=== PATIENT | female | born 1980 | race Caucasian/White ===

== ENCOUNTER 2017-08-21 11:42 | Emergency (ER) | payer SELFPAY ==
[~2017-08-21] VITALS: Ht 152.4 cm; Wt 52.2 kg
[~2017-08-21 11:42] MED LIST: ALPR0.5T PO; DEXT15CA18 PO; HYDR-2758 PO; MIRT45TA PO; OMEP40CA5 PO
[2017-08-21 12:05] VITALS: BP 117/64
[2017-08-21] MEDS ORDERED: AMOX500C PO (12:24)
[2017-08-21] MEDS ORDERED: TRAM-48 PO (12:24)
[2017-08-21] MEDS ORDERED: PRED50TA PO (12:24)
--- NOTE | 2017-08-21 12:24 | PHYS DOC ---
Past Medical History Past Medical History: Anxiety, Depression, P.U.D. Additional Past Medical Histor: ADHD, PTSD Past Surgical History: Appendectomy Additional Past Surgical Histo: Cervix LEEP/Cone Bx Alcohol Use: Occasionally Drug Use: None Adult General Chief Complaint Chief Complaint: SORE THROAT HPI HPI Patient is a 36 year old female with history of anxiety and depression who presents today with left lower gum dental infection and sore throat that she noted this morning. Patient states she is aware she has bad teeth and is to follow-up with a dentist but she does not have money until Thursday. Patient denies any fever or trismus. Review of Systems Review of Systems Constitutional: See history of present illness Eyes: Denies change in visual acuity, redness, or eye pain [] HENT: Left lower gum dental pain and swelling, sore throat Respiratory: Denies cough or shortness of breath [] Cardiovascular: No additional information not addressed in HPI [] Musculoskeletal: Denies back pain or joint pain [] Integument: Denies rash or skin lesions [] Neurologic: Denies headache, focal weakness or sensory changes [] Allergies Allergies Allergies Coded Allergies Type Severity Reaction Last Updated Verified No Known Drug Allergies 09/30/16 No Physical Exam Physical Exam Constitutional: Well developed, well nourished, no acute distress, non-toxic appearance. [] HENT: Normocephalic, atraumatic, bilateral external ears normal, oropharynx moist, no oral exudates, nose normal. [] Dental caries noted on the left molar Posterior pharynx is mildly injected +2 left anterior cervical adenopathy Eyes: PERRLA, EOMI, conjunctiva normal, no discharge. [] Neck: Normal range of motion, no tenderness, supple, no stridor. [] Cardiovascular:Heart rate regular rhythm, no murmur [] Lungs & Thorax: Bilateral breath sounds clear to auscultation [] Skin: Warm, dry, no erythema, no rash. [] Extremities: No tenderness, no cyanosis, no clubbing, ROM intact, no edema. [] Neurologic: Alert and oriented X 3, normal motor function, normal sensory function, no focal deficits noted. [] Psychologic: Affect normal, judgement normal, mood normal. [] Current Patient Data Vital Signs Vital Signs Date Time Temp Pulse Resp B/P (MAP) Pulse Ox O2 Delivery O2 Flow Rate FiO2 08/21/17 12:05 98.4 102 16 98 Room Air 98.4 EKG EKG [] Radiology/Procedures Radiology/Procedures [] Course & Med Decision Making Course & Med Decision Making Pertinent Labs and Imaging studies reviewed. (See chart for details) Patient has dental infection and pharyngitis. Will be discharged with amoxicillin and prednisone and Ultram for pain. Follow-up with dentist as soon as possible. Saltwater gargles recommended. Dragon Disclaimer Dragon Disclaimer This electronic medical record was generated, in whole or in part, using a voice recognition dictation system. Departure Departure Impression: Primary Impression: Infected dental caries Additional Impression: Acute pharyngitis Disposition: HOME, SELF-CARE Condition: STABLE Referrals: AIRAM DUMONT MD (PCP) Follow-up with your dentist as soon as possible Patient Instructions: Dental Caries-Brief, Viral and Bacterial Pharyngitis Additional Instructions: You were seen for dental infection and pharyngitis. We put you on antibiotics, ensure you complete them. Use saltwater gargles as needed. Take the prescribed pain medicine as needed for pain. Scripts Tramadol Hcl (ULTRAM) 50 Mg Tablet 1 TAB PO Q6HRS, #30 TAB Prov: NOA GILBERT APRN 08/21/17 Prednisone (PREDNISONE) 50 Mg Tablet 1 TAB PO DAILY, #5 TAB Prov: NOA GILBERT APRN 08/21/17 Amoxicillin (AMOXICILLIN) 500 Mg Capsule 1 CAP PO TID, #30 CAP Prov: NOA GILBERT APRN 08/21/17 Problem Qualifiers Additional Impression: Acute pharyngitis Pharyngitis/tonsillitis etiology: unspecified etiology Qualified Codes: J02.9 - Acute pharyngitis, unspecified NOA GILBERT [employer] HEL[employer] Aug 21, 2017 12:24
[2017-08-21 12:45] LABS: NEGATIVE OBC STREP NEG; POSITIVE OBC STREP POS
== END 2017-08-21 12:35 | disposition home or self-care (01) ==
LOC: ER 11:42
DX: K02.9 Dental caries, unspecified (principal); J02.9 Acute pharyngitis, unspecified; F90.9 Attention-deficit hyperactivity disorder, unspecified type; F43.10 Post-traumatic stress disorder, unspecified
CPT/HCPCS: 87070; 87880; 99283